=== PATIENT | female | born 1995 | race Caucasian/White ===

== ENCOUNTER 2017-12-23 10:49 | Emergency (ER) | payer OTHER ==
--- NOTE | 2017-12-23 11:45 | ED ---
Zain De Angela, scribed for Huseyin Scott MD on 12/23/17 at 1120 . Head Injury - HPI Summary HPI Summary: This pt is a 21 y/o female presenting to [facility] c/o head strike today. Pt reports she was loading things into a fire truck when the gate struck her on top of her head. Denies LOC. She states the locking mechanism didn't work and the gate dropped on her head. Pt notes head pain and some nausea. Denies numbness, tingling, vomiting, dizziness, diplopia, blurry vision. - History Of Current Complaint Chief Complaint: EDHeadInjury Stated Complaint: HIT IN HEAD Time Seen by Provider: 12/23/17 11:15 Hx Obtained From: Patient Mechanism Of Injury: Blunt Trauma Onset/Duration: Still Present Onset of Pain: Immediate Severity Initially: Moderate Pain Intensity: 6 Pain Scale Used: 0-10 Numeric Location: Diffuse Aggravating Factor(s): Other: - nothing Alleviating Factor(s): Other: - nothing Associated Signs And Symptoms: Nausea, Other: - NEG: numbness, tingling, vomiting, diplopia, dizziness - Allergies/Home Medications Allergies/Adverse Reactions: Allergies Allergy/AdvReac Type Severity Reaction Status Date / Time No Known Allergies Allergy Verified 12/23/17 11:10 PMH/Surg Hx/FS Hx/Imm Hx Endocrine/Hematology History: Denies: Hx Diabetes Cardiovascular History: Denies: Hx Hypertension Infectious Disease History: No Infectious Disease History: Denies: Traveled Outside the [place] in Last 30 Days - Family History Known Family History: Negative: Cardiac Disease - Social History Alcohol Use: None Substance Use Type: Reports: None Smoking Status (MU): Never Smoked Tobacco Review of Systems Negative: Fever Negative: Blurred Vision, Diplopia ENT: Other - head pain Positive: Nausea. Negative: Vomiting Negative: Weakness, Paresthesia All Other Systems Reviewed And Are Negative: Yes Physical Exam - Summary Physical Exam Summary: VITAL SIGNS: Reviewed. GENERAL: Patient is a well-developed and nourished female who is lying comfortable in the stretcher. Patient is not in any acute respiratory distress. HEAD AND FACE: No signs of trauma. No ecchymosis, hematomas or skull depressions. No sinus tenderness. EYES: PERRLA, EOMI x 2, No injected conjunctiva, no nystagmus. No photophobia. EARS: Hearing grossly intact. Ear canals and tympanic membranes are within normal limits. MOUTH: Oropharynx within normal limits. NECK: Supple, trachea is midline, no adenopathy, no JVD, no carotid bruit, no c- spine tenderness, neck with full ROM. No meningeal signs, no Kernig's or brudzinskis signs. CHEST: Symmetric, no tenderness at palpation LUNGS: Clear to auscultation bilaterally. No wheezing or crackles. CVS: Regular rate and rhythm, S1 and S2 present, no murmurs or gallops appreciated. ABDOMEN: Soft, non-tender. No signs of distention. No rebound no guarding, and no masses palpated. Bowel sounds are normal. EXTREMITIES: FROM in all major joints, no edema, no cyanosis or clubbing. NEURO: Alert and oriented x 3. No acute neurological deficits. Speech is normal and follows commands. SKIN: Dry and warm GCS: 15 Triage Information Reviewed: Yes Vital Signs On Initial Exam: Initial Vitals Temp Pulse Resp BP Pulse Ox 98.6 F 75 16 135/74 100 12/23/17 11:07 12/23/17 11:07 12/23/17 11:07 12/23/17 11:07 12/23/17 11:07 Vital Signs Reviewed: Yes Diagnostics - Vital Signs Vital Signs Temp Pulse Resp BP Pulse Ox 12/23/17 11:07 98.6 F 75 16 135/74 100 - Laboratory Lab Statement: Any lab studies that have been ordered have been reviewed, and results considered in the medical decision making process. Re-Evaluation - Re-Evaluation First Eval Re-Evaluation Time: 11:40 Comment: Pt has decided not to have a brain CT today. She will be discharged home. Head Injury Course/Dx Assessment/Plan: This patient is a 21-year-old female who came with head contusion. She did not have a loss of consciousness and she doesnt have any headache, dizziness, blurred vision, feeling like she is going to pass out or any other symptom. Neurological exam the patient is completely intact without any focal neurological abnormality. I discussed with the patient the benefits and risk of head CT and after she spoke with her mother and her aunt. Decided not to take the head CT right now. The patient was given the contusion and concussion instructions. She should return to the emergency department if she develops any headache, dizziness, nausea vomiting, lethargy or changes in her mental status. The patient will be expanding the day with her friend. I discussed all the findings and test results with the patient. Patient was instructed to return to the emergency room immediately if any of the symptoms return or worsens. Plan of care was discussed with the patient and understands and agrees. All questions were answered at patient satisfaction. There were no further complaints or concerns. Lung exam before discharge: CTA B/L. Good air exchange. No wheezing or crackles heard. CVS: S1 and S2 present. No murmurs appreciated. Patient is alert and oriented x 3. Patient is hemodynamically stable. Patient will be discharged home with follow up PCP in the next 2-3 days - Diagnoses Differential Diagnosis/HQI/PQRI: Concussion Without LOC Provider Diagnoses: Head contusion Discharge - Sign-Out/Discharge Documenting (check all that apply): Discharge/Admit/Transfer - Discharge - Discharge Plan Condition: Stable Disposition: HOME Patient Education Materials: Contusion in Adults (ED) [facility] [Primary Care Provider] - 3 Days Additional Instructions: Please follow up with your primary care provider. RETURN TO THE ED FOR ANY NEW OR WORSENING SYMPTOMS. - Billing Disposition and Condition Condition: STABLE Disposition: Home The documentation as recorded by the Zain nolasco Angela accurately reflects the service I personally performed and the decisions made by me, Huseyin Scott MD.
[2017-12-23] MEDS ORDERED: Acetaminophen TAB* 325 MG PO ONE (11:49)
[2017-12-23] MEDS ORDERED: Acetaminophen TAB* 325 MG ONE (11:51)
[2017-12-23 12:07] VITALS: BP 127/73
== END 2017-12-23 12:06 | disposition home or self-care (01) ==
LOC: ED 10:49
DX: S00.93XA Contusion of unspecified part of head, initial encounter (principal); W22.8XXA Striking against or struck by other objects, initial encounter; Y92.9 Unspecified place or not applicable
CPT/HCPCS: 99282; A9270-GY